=== PATIENT | male | born 1955 | race Caucasian/White ===

== ENCOUNTER 2020-02-29 14:52 | Inpatient (IN) | payer OTHER ==
[~2020-02-29] VITALS: Ht 188 cm; Wt 110.0 kg
[2020-02-29 15:38] LABS: Basophils # (auto) 0.1 10 ^3/uL (0-0.2); Eosinophils # (auto) 0.2 10 ^3/uL (0-0.8); Monocytes # (auto) 0.6 10 ^3/uL (0-1.3); Red Cell Distribution Width 14.1 % (11.8-14.3)
[2020-02-29 15:39] LABS: Basophils % (auto) 0.4 % (0.0-2.0); Eosinophils % (auto) 1.3 % (0.0-7.0); Hemoglobin 14.1 g/dL (13.5-17.5); Lymphocytes # (auto) 1.2 10 ^3/uL (0.4-5.4); Lymphocytes % (auto) 8.6 % (10.0-50.0); Mean Corpuscular Hemoglobin 34.8 pg (28.0-32.0); Mean Corpuscular Hgb Conc. 34.4 g/dL (32.0-36.0); Mean Corpuscular Volume 101.1 fL (80.0-100.0); Monocytes % (auto) 4.4 % (0.0-12.0); Neutrophils # (auto) 11.8 10 ^3/uL (1.6-8.6); Neutrophils % (auto) 85.3 % (37.0-80.0); Nucleated Red Blood Cells % 0.1 %; Platelet Count (auto) 368 10^3/uL (140-450); Red Blood Cells 4.06 10^6/uL (4.5-5.90); White Blood Cell 13.8 10^3/uL (4.4-10.8)
[2020-02-29 16:33] LABS: Alanine Aminotransferase 40 U/L (16-61); Albumin 3.6 g/dL (3.4-5.0); Anion Gap 7 (5-15); Aspartate Aminotransferase 36 U/L (15-37); BUN/Creatinine Ratio 24.7; Blood Urea Nitrogen 22 mg/dL (7-18); Calcium 8.6 mg/dL (8.5-10.1); Carbon Dioxide 23 mmol/L (21-32); Chloride 109 mmol/L (98-107); GFR African American 111 mL/min; GFR Non-African American 92 mL/min; Glucose 103 mg/dL (74-106); Potassium 3.9 mmol/L (3.5-5.1); Sodium 139 mmol/L (136-145)
[2020-02-29 16:39] LABS: Alkaline Phosphatase 114 U/L (45-117); Bilirubin, Total 0.6 mg/dL (0.2-1.0); Total Protein 7.1 g/dL (6.4-8.2)
[2020-02-29] MEDS ORDERED: ONDANSETRON HCL 4 MG/2 ML VIAL IV ONE (17:00)
[2020-02-29] MEDS ORDERED: MORPHINE SULFATE 4 MG/ML SYR/VIAL IV ONE (17:00)
[2020-02-29] MEDS ORDERED: NITROGLYCERIN 0.4 MG SL TAB SL PRN ×2 (17:45→20:00)
[2020-02-29] MEDS ORDERED: MORPHINE SULF INJ 2 MG/ML SYRINGE 1ML IV PRN ×2 (17:45→20:00)
[2020-02-29] MEDS: SODIUM CHLORIDE 0.9% 1,000 ML IV SCH (19:15)
[2020-02-29] MEDS ORDERED: SODIUM CHLORIDE 0.9% 1,000 ML IV ONE (19:15)
[2020-02-29] MEDS ORDERED: ALUM & MAG HYDROX-SIMETH LIQ(MAALOX) 30 ML PO PRN (20:00)
[2020-02-29] MEDS ORDERED: LORazepam 0.5 MG TAB PO PRN (20:00)
[2020-02-29] MEDS ORDERED: HYDROmorphone HCL 2 MG/ML VL IV PRN (20:00)
[2020-02-29 20:10] LABS: Folate (Folic Acid) > 24.00 ng/mL (5.38-24)
[2020-02-29] MEDS ORDERED: hydrALAZINE HCL 20 MG/ML VL IV PRN (20:15)
[2020-02-29 20:30] VITALS: BP 156/91
--- NOTE | 2020-02-29 20:30 | NUR ---
Telemetry admit from ER LEIGHAFLORESITA admitted to Telemetry unit after SBAR received. Patient oriented to JAKE CHIU, WESTLEY primary RN, nga scott, 277,[id number], and unit policies regarding patient care and visiting hours. Patient now on continuous telemetry monitoring, tele box # 70 and telemetry reading on arrival to unit is normal sinus rhythm 72. weighed by bedscale and encouraged to call if they need something. All questions and concerns addressed, patient verbalized understanding. Will continue to monitor.
[2020-02-29 20:41] LABS: Cholesterol 169 mg/dL (< 200); Triglycerides 92 mg/dL (< 150)
[2020-02-29 20:44] LABS: HDL Cholesterol 46 mg/dL (40-59); LDL Cholesterol 108 mg/dL (< 100)
[2020-02-29] MEDS: MORPHINE SULF INJ 2 MG/ML SYRINGE 1ML IV PRN (21:07)
[2020-02-29] MEDS: NIFEdipine 10 MG CAP PO SCH (21:08)
[2020-02-29] MEDS: AMPICILLIN & SULBACTAM SODIUM 3 GM in SODIUM CHL 0.9% 100 ML IV SCH (21:09)
[2020-02-29 22:00] VITALS: BP 156/91
[2020-03-01] MEDS: SODIUM CHLORIDE 0.9% 1,000 ML IV SCH ×3 (00:50→10:15)
[2020-03-01] MEDS: MORPHINE SULF INJ 2 MG/ML SYRINGE 1ML IV PRN ×6 (01:18→23:20)
[2020-03-01] MEDS: AMPICILLIN & SULBACTAM SODIUM 3 GM in SODIUM CHL 0.9% 100 ML IV SCH ×4 (01:28→20:52)
[2020-03-01] MEDS ORDERED: LOSA25TA8 PO (04:49)
[2020-03-01] MEDS ORDERED: METH2.5T3 PO (04:49)
[2020-03-01] MEDS ORDERED: NAPR220C PO (04:49)
[2020-03-01 05:00] VITALS: BP 130/73
[2020-03-01] MEDS: NIFEdipine 10 MG CAP PO SCH ×3 (05:47→20:52)
[2020-03-01 06:45] LABS: Basophils # (auto) 0 10 ^3/uL (0-0.2); Basophils % (auto) 0.3 % (0.0-2.0); Neutrophils % (auto) 82.5 % (37.0-80.0)
[2020-03-01 06:48] LABS: Eosinophils # (auto) 0.1 10 ^3/uL (0-0.8); Eosinophils % (auto) 0.4 % (0.0-7.0); Hematocrit 40.3 % (41.0-53.0); Hemoglobin 13.5 g/dL (13.5-17.5); Lymphocytes # (auto) 1.2 10 ^3/uL (0.4-5.4); Lymphocytes % (auto) 7.9 % (10.0-50.0); Mean Corpuscular Hgb Conc. 33.4 g/dL (32.0-36.0); Mean Corpuscular Volume 101.8 fL (80.0-100.0); Monocytes # (auto) 1.3 10 ^3/uL (0-1.3); Monocytes % (auto) 8.9 % (0.0-12.0); Platelet Count (auto) 360 10^3/uL (140-450); Red Blood Cells 3.96 10^6/uL (4.5-5.90); Red Cell Distribution Width 14.4 % (11.8-14.3); White Blood Cell 14.5 10^3/uL (4.4-10.8)
[2020-03-01 06:55] LABS: INR 1.03 (0.9-1.15); Partial Thromboplastin Time 28.2 sec (23.64-32.05)
[2020-03-01 06:57] LABS: Urine Bacteria NONE SEEN /hpf (None Seen); Urine Blood 2+ /uL (Negative); Urine Specific Gravity 1.017 (1.001-1.035); Urine WBC 5 /hpf (0 - 3)
[2020-03-01 07:06] LABS: Potassium 3.9 mmol/L (3.5-5.1)
--- NOTE | 2020-03-01 07:18 | NUR ---
Closing note Patient alert and orientated x4. No SOB or distress noted. Endorsed care to Day shift RN.
[2020-03-01 07:24] LABS: Albumin 3.4 g/dL (3.4-5.0); Bilirubin, Total 1.2 mg/dL (0.2-1.0); Calcium 8.2 mg/dL (8.5-10.1); Magnesium 2.4 mg/dL (1.6-2.6); Phosphorus 2.5 mg/dL (2.5-4.90); Total Protein 6.8 g/dL (6.4-8.2)
[2020-03-01 07:29] LABS: Alcohol, Urine < 3.0 mg/dL (0-5); Amphetamine Screen, Urine NEGATIVE (NEGATIVE); Barbiturate Scree,Urine NEGATIVE (NEGATIVE); Benzodiazephine Screen, Urine NEGATIVE (NEGATIVE); Cannabinoid Screen, Urine NEGATIVE (NEGATIVE); Cocaine Screen, Urine NEGATIVE (NEGATIVE); Opiate Scree,Urine POSITIVE (NEGATIVE); Phencyclidine Screen, Urine NEGATIVE (NEGATIVE)
--- NOTE | 2020-03-01 07:30 | NUR ---
Assumed care Patient in bed AOx4, no s/s of distress or SOB noted. Patient updated on POC and to call for assistance as needed, all questions and concerns addressed, patient verbalized understanding. Will continue care.
[2020-03-01] MEDS: ENOXAPARIN SOD 40 MG/0.4 ML SYRINGE SC SCH (08:33)
[2020-03-01 09:00] VITALS: BP 121/64
--- NOTE | 2020-03-01 10:30 | NUR ---
Pain Patient complaining of generalized pain in body but primarily pain focused on left thoracic area. Per patient pain is constant, stabbing, and pressure like. Patient rates pain 10/10. Patient has been repositioned for comfort. Morphine 1mg IV given for pain, will reassess pain in one hour.
[2020-03-01 13:00] VITALS: BP 134/76
[2020-03-01] MEDS: HYDROcodone-ACET 5/325MG TAB PO PRN ×3 (13:15→21:47)
--- NOTE | 2020-03-01 13:16 | NUR ---
Pain Patient complaining of generalized pain in body but primarily pain focused on left thoracic area. Per patient pain is constant, stabbing, and pressure like. Patient rates pain 6/10. Patient has been repositioned for comfort.[place] 5/352 PO given for pain, will reassess pain in one hour.
[2020-03-01 16:49] VITALS: BP 140/71
[2020-03-01] MEDS ORDERED: CYANOCOBALAMIN (B-12) 1000 MCG/1 ML VIAL SUBCUT ONE (17:00)
[2020-03-01] MEDS ORDERED: POLYETHYLENE GLYCOL 17 GM PWDR PO ONE (17:00)
[2020-03-01] MEDS: ONDANSETRON HCL 4 MG/2 ML VIAL IV PRN ×2 (17:40→23:25)
--- NOTE | 2020-03-01 18:20 | NUR ---
IV removal Left hand IV DC'd with clean sterile technique, catheter fully intact. Pressure dressing applied to site. Patient tolerated well. NEW IV New 22G IV placed on the right hand, after one attempt, patient tolerated well. No trauma to site. Will continue to monitor.
[2020-03-01] MEDS ORDERED: LORazepam 2MG/ML-1ML VIAL IV PRN (18:30)
--- NOTE | 2020-03-01 19:45 | NUR ---
Opening Shift Note Assumed care of patient, awake and alert, oriented x 4, clear speech, follows direction. On oxygen at 2L via NC with even and unlabored respirations. Patient was able to return demonstration with proper use of incentive spirometer, 1500ml inspire volume. No S/S of distress/SOB.Steri-strips to left lateral eye CDI. Bed in lowest locked position with side rails up x 2 and call light within reach. Instructed on POC and to call for assist PRN, will continue to monitor for changes Q1hr and PRN.
[2020-03-01 21:00] VITALS: BP 141/72
[2020-03-01] MEDS: DOCUSATE SOD 100 MG CAP PO PRN (21:48)
[2020-03-02] MEDS: AMPICILLIN & SULBACTAM SODIUM 3 GM in SODIUM CHL 0.9% 100 ML IV SCH ×3 (02:31→14:15)
[2020-03-02] MEDS: ONDANSETRON HCL 4 MG/2 ML VIAL IV PRN ×2 (04:17→17:03)
[2020-03-02] MEDS: MORPHINE SULF INJ 2 MG/ML SYRINGE 1ML IV PRN ×3 (04:18→14:32)
[2020-03-02 05:00] VITALS: BP 135/69
[2020-03-02] MEDS: NIFEdipine 10 MG CAP PO SCH ×3 (05:44→21:00)
--- NOTE | 2020-03-02 06:57 | NUR ---
Closing Note patient resting in bed with oxygen on, even and unlabored respirations, noted chest rise and fall. No s/s of distress noted. Bed in lowest locked position with side rails up x 2 and call light within reach. Endorsed care to day shift RN.
--- NOTE | 2020-03-02 07:30 | NUR ---
Opening Shift Note Assumed care of patient, awake and alert. No S/S of distress/SOB or pain. Instructed on POC and to call for assist PRN, will continue to monitor for changes Q1hr and PRN. Patient currently going down to radiology for procedure. Signed: 03/02/20 at 0754 by SORAYA SHELDON SN <Co-Signature Required> Co-Signed: 03/02/20 at 0754 by TAHMINA RANGEL RN RN
--- NOTE | 2020-03-02 07:30 | NUR ---
Opening Shift Note Assumed care of patient. Patient currently awake unable to respond to questions, with spontaneous eye opening. No S/S of distress or pain. Patient currently on 10L O2 Simple mask, with 98% SPo2 reading. Fall percautions initiated, bed lowest position, call light with in reach. Sitter present at bedside. Will continue to monitor for changes Q1hr and PRN. Signed: 03/02/20 at 0758 by SORAYA SHELDON <Co-Signature Required> Co-Signed: 03/02/20 at 0758 by TAHMINA RANGEL RN RN Addendum: 03/02/20 at 0833 by SORAYA SHELDON incorrect patient Signed: 03/02/20 at 0833 by SORAYA SHELDON <Co-Signature Required> Co-Signed: 03/02/20 at 0833 by TAHMINA RANGEL RN RN
[2020-03-02 08:21] LABS: Basophils # (auto) 0.1 10 ^3/uL (0-0.2); Eosinophils # (auto) 0.1 10 ^3/uL (0-0.8); Eosinophils % (auto) 0.5 % (0.0-7.0); Lymphocytes # (auto) 1.2 10 ^3/uL (0.4-5.4); Red Cell Distribution Width 14.5 % (11.8-14.3)
[2020-03-02 08:23] LABS: Basophils % (auto) 0.4 % (0.0-2.0); Hematocrit 42.8 % (41.0-53.0); Hemoglobin 13.9 g/dL (13.5-17.5); Lymphocytes % (auto) 7.7 % (10.0-50.0); Mean Corpuscular Hemoglobin 33.5 pg (28.0-32.0); Mean Corpuscular Hgb Conc. 32.5 g/dL (32.0-36.0); Monocytes % (auto) 6.4 % (0.0-12.0); Neutrophils # (auto) 13.1 10 ^3/uL (1.6-8.6); Platelet Count (auto) 354 10^3/uL (140-450); Red Blood Cells 4.16 10^6/uL (4.5-5.90); White Blood Cell 15.4 10^3/uL (4.4-10.8)
[2020-03-02 08:44] VITALS: BP 124/64
[2020-03-02 08:44] LABS: BUN/Creatinine Ratio 23.1; Calcium 8.4 mg/dL (8.5-10.1); Magnesium 2.4 mg/dL (1.6-2.6); Potassium 3.6 mmol/L (3.5-5.1)
[2020-03-02] MEDS ORDERED: POLYETHYLENE GLYCOL 17 GM PWDR PO SCH (10:00)
[2020-03-02] MEDS: ENOXAPARIN SOD 40 MG/0.4 ML SYRINGE SC SCH (10:08)
[2020-03-02] MEDS: CYANOCOBALAMIN (B-12) 1000 MCG/1 ML VIAL SUBCUT SCH (10:15)
[2020-03-02 17:00] VITALS: BP 138/74
[2020-03-02] MEDS: HYDROcodone-ACET 5/325MG TAB PO PRN (17:08)
--- NOTE | 2020-03-02 17:38 | NUR ---
MD ROUNDING MD AT BEDSIDE. ALL QUESTIONS AND CONCERNS ADDRESSED AT THIS TIME. NEW ORDERS RECEIVED
[2020-03-02] MEDS ORDERED: LACTULOSE 20Gm/30ML SOLN PO ONE (18:00)
[2020-03-02] MEDS ORDERED: levoFLOXacin 500MG 100 ML IV ONE (18:00)
--- NOTE | 2020-03-02 18:17 | NUR ---
UPDATED ON POC
[2020-03-02] MEDS: LACTULOSE 20Gm/30ML SOLN PO SCH ×2 (18:51→23:02)
[2020-03-02 20:05] VITALS: BP 158/89
--- NOTE | 2020-03-02 20:05 | NUR ---
Opening Shift Note Assumed care of patient, awake and alert. No S/S of distress/SOB. Patient is on 3 liters of oxygen via nasal cannula. Respirations even and unlabored. Patient reports 9/10 pain on left side of ribs. Patient has no PRN pain medication available for severe pain 7-10 and [place] available for moderate pain not due. Will contact MD. Instructed on POC and to call for assist PRN, will continue to monitor for changes Q1hr and PRN.
--- NOTE | 2020-03-02 20:09 | NUR ---
Hospitalist paged regarding patient requesting pain medication for 9/10 pain on left side of his ribs but no PRN pain medication available for severe pain.
[2020-03-02] MEDS ORDERED: MORPHINE SULF INJ 2 MG/ML SYRINGE 1ML IV PRN (20:45)
--- NOTE | 2020-03-02 20:45 | NUR ---
Received callback from Dr. Min regarding patient requesting pain medication for 9/10 pain on left side of his ribs but no PRN pain medication available for severe pain. New order received: Morphine 2 mg IV Q4HR PRN for severe pain 7-10.
[2020-03-02] MEDS: DOCUSATE SOD 100 MG CAP PO PRN (21:02)
[2020-03-02 21:03] VITALS: BP 158/89
--- NOTE | 2020-03-02 21:05 | NUR ---
Incentive spirometer (IS) education provided. Patient educated to use IS 10 times per hour while awake. Patient verbalized understanding and performed return demonstration. Patient able to reach 1600 ml.
[2020-03-02 22:00] VITALS: BP 142/79
--- NOTE | 2020-03-02 22:00 | NUR ---
Patient's BP reassessed after scheduled BP medication Procardia 30 mg PO capsule given. BP is 142/79, HR of 86. Patient asymptomatic.
--- NOTE | 2020-03-02 22:35 | NUR ---
Patient's Maliha called for update.Correct password provided. Update provided. Per patient's she has questions regarding medication reactions, follow up appointments, and insurance coverage. Per patient's she would like social work administrator to be aware of patient's worker's compensation phone number and claim number of [id number]. Will endorse to day shift RN.
[2020-03-03] VITALS (7 sets, daily range): BP systolic 139–160; BP diastolic 77–97
[2020-03-03] MEDS: HYDROcodone-ACET 5/325MG TAB PO PRN ×5 (00:54→18:33)
[2020-03-03] MEDS: LACTULOSE 20Gm/30ML SOLN PO SCH ×3 (05:34→17:12)
[2020-03-03] MEDS: NIFEdipine 10 MG CAP PO SCH ×3 (05:35→21:38)
[2020-03-03 05:40] LABS: Basophils # (auto) 0.1 10 ^3/uL (0-0.2); Eosinophils # (auto) 0.1 10 ^3/uL (0-0.8); White Blood Cell 15.1 10^3/uL (4.4-10.8)
[2020-03-03 05:43] LABS: Basophils % (auto) 0.8 % (0.0-2.0); Eosinophils % (auto) 0.5 % (0.0-7.0); Hematocrit 41.6 % (41.0-53.0); Hemoglobin 13.7 g/dL (13.5-17.5); Lymphocytes # (auto) 1.4 10 ^3/uL (0.4-5.4); Lymphocytes % (auto) 9.6 % (10.0-50.0); Mean Corpuscular Hemoglobin 33.8 pg (28.0-32.0); Mean Corpuscular Hgb Conc. 32.9 g/dL (32.0-36.0); Mean Corpuscular Volume 102.7 fL (80.0-100.0); Monocytes # (auto) 1.3 10 ^3/uL (0-1.3); Monocytes % (auto) 8.8 % (0.0-12.0); Neutrophils # (auto) 12.1 10 ^3/uL (1.6-8.6); Neutrophils % (auto) 80.3 % (37.0-80.0); Nucleated Red Blood Cells % 0.1 %; Platelet Count (auto) 354 10^3/uL (140-450); Red Blood Cells 4.05 10^6/uL (4.5-5.90); Red Cell Distribution Width 14.1 % (11.8-14.3)
--- NOTE | 2020-03-03 07:00 | NUR ---
CLOSING NOTE No S/S of distress/SOB or pain. Patient is on 3 liters of oxygen via nasal cannula. Respirations even and unlabored.
[2020-03-03] MEDS: CYANOCOBALAMIN (B-12) 1000 MCG/1 ML VIAL SUBCUT SCH (09:26)
[2020-03-03] MEDS: ENOXAPARIN SOD 40 MG/0.4 ML SYRINGE SC SCH (09:26)
[2020-03-03] MEDS: levoFLOXacin 750MG 150 ML IV SCH (09:26)
[2020-03-03] MEDS: DOCUSATE SOD 100 MG CAP PO PRN (09:32)
--- NOTE | 2020-03-03 13:30 | NUR ---
PT REPORTS THAT HE HAS ALREADY BEEN WALKING IN ROOM. ATTEMPT P.T. LATER.
--- NOTE | 2020-03-03 14:15 | NUR ---
Patient still cannot have BM, spoke to Dr. Kim, received new order, noted and carried it out.
[2020-03-03] MEDS ORDERED: BISACODYL 10 MG RECT SUPP PR ONE (14:30)
--- NOTE | 2020-03-03 20:05 | NUR ---
Opening Shift Note Assumed care of patient, awake and alert. No S/S of distress/SOB. Patient is on 3 liters of oxygen via nasal cannula. Respirations even and unlabored. Patient reports 6/10 pain on the left side of his ribs. Patient informed that [place] is not due at this time. Patient verbalized understanding. Relaxation techniques used to relieve pain. Instructed on POC and to call for assist PRN, will continue to monitor for changes Q1hr and PRN.
--- NOTE | 2020-03-03 20:10 | NUR ---
Hospitalist paged regarding patient requesting medication for constipation. Awaiting callback at this time.
--- NOTE | 2020-03-03 20:20 | NUR ---
Received callback from Dr. Min regarding patient requesting medication for constipation. New order received: tap water enema.
--- NOTE | 2020-03-03 21:54 | NUR ---
Received call from patient's Maliha. Correct password provided. Update provided. Per patient's the doctor wanted to know patient's previous white blood cell count. Per patient's patient's white blood cell count on 12/09/19 was 8.9 taken at [facility].
--- NOTE | 2020-03-03 23:00 | NUR ---
Patient's BP reassessed after scheduled BP medication Procardia 30 mg PO capsule given. BP is 139/87. Patient asymptomatic.
--- NOTE | 2020-03-03 23:30 | NUR ---
Tap water enema administered to patient per MD order.
--- NOTE | 2020-03-04 | NUR ---
Bowel Movement Per patient statement patient had a large BM.
[2020-03-04] MEDS: LACTULOSE 20Gm/30ML SOLN PO SCH ×4 (00:25→18:00)
[2020-03-04] MEDS: HYDROcodone-ACET 5/325MG TAB PO PRN ×4 (01:24→15:26)
[2020-03-04 05:30] VITALS: BP 154/92
[2020-03-04 05:58] LABS: Basophils # (auto) 0 10 ^3/uL (0-0.2); Basophils % (auto) 0.2 % (0.0-2.0); Eosinophils # (auto) 0.1 10 ^3/uL (0-0.8); Eosinophils % (auto) 0.6 % (0.0-7.0); Hematocrit 40.7 % (41.0-53.0); Hemoglobin 13.5 g/dL (13.5-17.5); Lymphocytes # (auto) 1.2 10 ^3/uL (0.4-5.4); Lymphocytes % (auto) 8.2 % (10.0-50.0); Mean Corpuscular Hemoglobin 33.9 pg (28.0-32.0); Mean Corpuscular Hgb Conc. 33.3 g/dL (32.0-36.0); Mean Corpuscular Volume 101.7 fL (80.0-100.0); Monocytes # (auto) 1.6 10 ^3/uL (0-1.3); Monocytes % (auto) 11.1 % (0.0-12.0); Neutrophils # (auto) 11.4 10 ^3/uL (1.6-8.6); Neutrophils % (auto) 79.9 % (37.0-80.0); Nucleated Red Blood Cells % 0.1 %; Platelet Count (auto) 361 10^3/uL (140-450); Red Cell Distribution Width 14.4 % (11.8-14.3); White Blood Cell 14.2 10^3/uL (4.4-10.8)
--- NOTE | 2020-03-04 06:09 | NUR ---
Hospitalist paged regarding patient requesting medication for nausea but no PRN medication available for nausea. Awaiting callback at this time.
--- NOTE | 2020-03-04 06:12 | NUR ---
Dr. Min called back regarding patient requesting medication for nausea but no PRN medication available for nausea. New order received: Zofran 4 mg IV Q4HR PRN for nausea/vomiting.
[2020-03-04] MEDS ORDERED: ONDANSETRON HCL 4 MG/2 ML VIAL IV PRN (06:15)
[2020-03-04 06:17] LABS: Potassium 3.5 mmol/L (3.5-5.1)
[2020-03-04 06:24] LABS: BUN/Creatinine Ratio 23.2; Calcium 8.4 mg/dL (8.5-10.1)
--- NOTE | 2020-03-04 06:25 | NUR ---
Patient medicated with [place] for 7/10 pain on left side of ribs per patient request. Patient offered morphine for severe pain. Patient refuses morphine.
[2020-03-04] MEDS: NIFEdipine 10 MG CAP PO SCH ×2 (06:31→14:34)
--- NOTE | 2020-03-04 07:25 | NUR ---
CLOSING NOTE No S/S of distress/SOB or pain. Patient is on 3 liters of oxygen via nasal cannula. Respirations even and unlabored.
--- NOTE | 2020-03-04 07:30 | NUR ---
Opening Shift Note Assuming care of patient at this time. Patient is awake and alert. Patient denies pain at this time. Patient shows no signs or symptoms of distress or shortness of breath. Bed is locked and lowered with side rails up x2. Instructed patient on the plan of care for today and to call for assistance as needed. Call light within reach. Will continue to round hourly and as needed.
[2020-03-04 09:00] VITALS: BP 133/77
[2020-03-04] MEDS: levoFLOXacin 750MG 150 ML IV SCH (09:52)
[2020-03-04] MEDS: ENOXAPARIN SOD 40 MG/0.4 ML SYRINGE SC SCH (09:53)
[2020-03-04] MEDS: CYANOCOBALAMIN (B-12) 1000 MCG/1 ML VIAL SUBCUT SCH (09:54)
--- NOTE | 2020-03-04 11:59 | NUR ---
I called [facility] [employer] Chana Patel [phone] regarding home oxygen order. Faxed her the order to [phone] as well as the ABG-she will forward it to her vendor and call me back regarding delivery time.
[2020-03-04 13:00] VITALS: BP 156/95
--- NOTE | 2020-03-04 15:06 | NUR ---
1500 03/04/20 I contacted [facility] [employer] (no return call from her) Chana to request an update on the status of the home oxygen-she stated she couldn't find a vendor that would deliver up here. I faxed home oxygen request to [facility]-I provided Chana with their phone number so she can provide them with authorization.
--- NOTE | 2020-03-04 15:07 | NUR ---
Nutrition Assessment Notes please see attached link fo complete assessment [employer] needs ABW 98 [id number] kcals (23-25 kcal/kgBW), Est Protein needs: 98-107 gms/day (1.0-1.1 gm/kgBW). Will continue to monitor and reassess prn. Addendum: 03/04/20 at [address] Amended: Links added.
--- NOTE | 2020-03-04 16:46 | NUR ---
I called [employer] [phone] and spoke with Susi, she said portable oxygen tank will be delivered to hospital by 183. I relayed this information to nurse Dumont.
[2020-03-04 17:08] VITALS: BP 146/84
--- NOTE | 2020-03-04 17:30 | NUR ---
Discharge Photos Discharge photos taken at this time of patient's laceration to left eye that was present on admission.
--- NOTE | 2020-03-04 17:40 | NUR ---
Oxygen Delivered Oxygen delivered to bedside at this time. Educated patient on how to use oxygen. Patient is currently refusing to wear. Patient states he will wear it in the car.
--- NOTE | 2020-03-04 17:45 | NUR ---
Antibiotics Spoke with patient. Despite section of discharge that states to continue antibiotics, patient will not go home on antibiotics. Spoke with Dr. Pop and there will are no antibiotics needed. Patient aware.
--- NOTE | 2020-03-04 17:54 | NUR ---
Discharge Discharge instructions given as ordered. Encourage to follow up with PMD as instructed. All questions and concerns addressed. Patient verbalized understanding. Oxygen taken with patient, however, patient does not want to wear oxygen at this time. Patient states, "I will put in on in the car." Medication reconciliation form completed and copy given to patient. IV removed with catheter intact, pressure dressing applied. Telemetry unit returned to ICU. Patient taken to vehicle via wheelchair with all personal belongings, accompanied by staff. 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 No distress noted at time of departure.
== END 2020-03-04 18:20 | disposition home or self-care (01) | DRG 183 ==
LOC: EDBD 14:52 → ER 14:52 → TELE 14:53 → TELE-WESTW 20:00
PROVIDERS: ADMIT Hospitalist; ATTEND Internal Medicine
DX: S22.42XA Multiple fractures of ribs, left side, initial encounter for closed fracture (principal); J96.00 Acute respiratory failure, unspecified whether with hypoxia or hypercapnia; R65.10 Systemic inflammatory response syndrome (SIRS) of non-infectious origin without acute organ dysfunction; J98.11 Atelectasis; D75.89 Other specified diseases of blood and blood-forming organs; I10 Essential (primary) hypertension; K59.00 Constipation, unspecified; D72.829 Elevated white blood cell count, unspecified; F17.200 Nicotine dependence, unspecified, uncomplicated; M06.9 Rheumatoid arthritis, unspecified; M48.02 Spinal stenosis, cervical region; N28.1 Cyst of kidney, acquired; S01.81XA Laceration without foreign body of other part of head, initial encounter; Y99.0 Civilian activity done for income or pay; Z80.6 Family history of leukemia; Z90.81 Acquired absence of spleen; Y93.89 Activity, other specified; Y92.89 Other specified places as the place of occurrence of the external cause; Z79.899 Other long term (current) drug therapy; Z90.49 Acquired absence of other specified parts of digestive tract; W11.XXXA Fall on and from ladder, initial encounter
CPT/HCPCS: 36415; 36600; 70450; 70551; 71046; 71250; 72125; 80048; 80053; 80061; 80307; 81001; 82550; 82607; 82746; 82805; 83036; 83735; 84100; 84132; 84146; 84484; 85025; 85610; 85730; 87040; 93005; 97116; 97163; 97530; G0378; J1956; J2405